=== PATIENT | male | born 1985 | race Caucasian/White ===

== ENCOUNTER 2016-05-28 11:36 | Emergency (ER) | payer SELFPAY ==
[2016-05-28] MEDS ORDERED: NAPROXEN 250 MG TABLET PO ONE (11:59)
--- NOTE | 2016-05-28 12:03 | ER Document Report ---
ED Medical Screen (RME) - General Chief Complaint: Back Pain Stated Complaint: LOW BACK PAIN,LEFT LEG PAIN Mode of Arrival: Ambulatory Information source: Patient Notes: 31-year-old male presents to the emergency department complaining of left lower back pain intermittently persistent over approximately the last week. Reports pain radiates down his left leg worse with movement and ambulation. Denies fever or trauma. I have greeted and performed a rapid initial assessment of this patient. A comprehensive ED assessment and evaluation of the patient, analysis of test results and completion of the medical decision making process will be conducted by additional ED providers. TRAVEL OUTSIDE OF THE [place] IN LAST 30 DAYS: No - Related Data Allergies/Adverse Reactions: No Known Allergies Allergy (Verified 05/28/16 11:55) Past Medical History - Social History Chew tobacco use (# tins/day): No Frequency of alcohol use: None Drug Abuse: None Renal/ Medical History: Denies: Hx Peritoneal Dialysis - Immunizations Hx Diphtheria, Pertussis, Tetanus Vaccination: Yes Physical Exam - Vital signs Vitals: Pulse Resp BP Pulse Ox 106 H 20 143/103 H 100 05/28/16 11:57 05/28/16 11:57 05/28/16 11:57 05/28/16 11:57 - General General appearance: Appears well, Alert In distress: None Course - Vital Signs Vital signs: Temp Pulse Resp BP Pulse Ox 106 H 20 143/103 H 100 05/28/16 11:57 05/28/16 11:57 05/28/16 11:57 05/28/16 11:57
[2016-05-28] MEDS ORDERED: OXYCODONE-ACETAMINOPHEN 5-325 MG TABLET PO ONE (13:02)
[2016-05-28 13:48] LABS: ABSOLUTE EOSINOPHILS # (AUTO) 0.1 10^3/uL (0.0-0.6); ABSOLUTE LYMPHOCYTES (AUTO) 2.5 10^3/uL (0.5-4.7); ABSOLUTE MONOCYTES (AUTO) 0.9 10^3/uL (0.1-1.4); ABSOLUTE NEUT (AUTO) 4.9 10^3/uL (1.7-8.2); BASOPHILS % (AUTO) 0.4 % (0-2); EOSINOPHILS % (AUTO) 1.5 % (0-6); HEMATOCRIT 44.6 % (37.9-51.0); HEMOGLOBIN 15.6 g/dL (13.5-17.0); HGB HCT DIFFERENCE 2.2; LYMPHOCYTES % (AUTO) 29.7 % (13-45); MEAN CORPUSCULAR VOLUME 86 fl (80-97); MONOCYTES % (AUTO) 10.2 % (3-13); RED CELL DISTRIBUTION WIDTH 12.8 % (11.5-14.0); SEGMENTED NEUTROPHILS % (AUTO) 58.2 % (42-78); WHITE BLOOD COUNT 8.4 10^3/uL (4.0-10.5)
[2016-05-28] MEDS ORDERED: PREDNISONE 20 MG TABLET PO ONE (13:56)
[2016-05-28] MEDS ORDERED: METHOCARBAMOL 500 MG TABLET PO ONE (13:56)
[2016-05-28 14:04] LABS: APPEARANCE,URINE SLIGHTLY-CLOUDY; BILIRUBIN,URINE NEGATIVE (NEGATIVE); GLUCOSE, URINE NEGATIVE (NEGATIVE); KETONES,URINE NEGATIVE (NEGATIVE); LEUKOCYTE ESTERASE,URINE NEGATIVE (NEGATIVE); NITRITE,URINE NEGATIVE (NEGATIVE); PROTEIN,URINE NEGATIVE (NEGATIVE); URINE SPECIFIC GRAVITY 1.024; UROBILINOGEN,URINE NEGATIVE mg/dL (<2.0)
[2016-05-28 14:07] LABS: ALANINE AMINOTRANSFERASE 83 U/L (21-72); ALBUMIN 4.7 g/dL (3.5-5.0); ALKALINE PHOSPHATASE 59 U/L (38-126); ANION GAP 12 (5-19); ASPARTATE AMINO TRANSFERASE 40 U/L (17-59); BILIRUBIN,TOTAL 0.9 mg/dL (0.2-1.3); BLOOD UREA NITROGEN 19 mg/dL (7-20); CALCIUM 10.1 mg/dL (8.4-10.2); CARBON DIOXIDE 27 mmol/L (22-30); CHLORIDE 102 mmol/L (98-107); CREATININE RESULT 1.13 mg/dL (0.52-1.25); GLUCOSE 93 mg/dL (75-110); POTASSIUM 4.4 mmol/L (3.6-5.0); SODIUM 141.3 mmol/L (137-145); TOTAL PROTEIN 7.3 g/dL (6.3-8.2)
--- NOTE | 2016-05-28 14:34 | ER Document Report ---
ED General - General Chief Complaint: Back Pain Stated Complaint: LOW BACK PAIN,LEFT LEG PAIN Mode of Arrival: Ambulatory Information source: Patient Notes: Patient presents to emergency department with complaints of left-sided low back pain that radiates down his left buttocks to his thigh and into his foot. He denies trauma. He denies urinary bowel incontinence or retention. He denies numbness or tingling. He reports symptoms started last and escalated since then. He denies other symptoms such as fever vomiting diarrhea. 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 Patient reports at times the pain goes up his back and into his neck. He denies weight loss. He denies use of IV drugs. He denies steroid injections. He also denies cancers. TRAVEL OUTSIDE OF THE [place] IN LAST 30 DAYS: No - HPI Onset: Last week Onset/Duration: Sudden, Persistent Quality of pain: Achy Severity: Severe Pain Level: 4 Associated symptoms: None Exacerbated by: Sitting Relieved by: Denies Similar symptoms previously: No Recently seen / treated by doctor: No - Related Data Allergies/Adverse Reactions: No Known Allergies Allergy (Verified 05/28/16 11:55) Past Medical History - General Information source: Patient - Social History Smoking Status: Never Smoker Chew tobacco use (# tins/day): No Frequency of alcohol use: None Drug Abuse: None Occupation: construction Lives with: Family Family History: Reviewed & Not Pertinent Patient has suicidal ideation: No Patient has homicidal ideation: No - Medical History Medical History: Negative Renal/ Medical History: Denies: Hx Peritoneal Dialysis Surgical Hx: Negative - Immunizations Hx Diphtheria, Pertussis, Tetanus Vaccination: Yes Review of Systems - Review of Systems Notes: Review HPI for review of systems., All other systems negative Physical Exam - Vital signs Vitals: Pulse Resp BP Pulse Ox 106 H 20 143/103 H 100 05/28/16 11:57 05/28/16 11:57 05/28/16 11:57 05/28/16 11:57 - Notes Notes: PHYSICAL EXAMINATION: GENERAL: Well-appearing and in no acute distress HEAD: Atraumatic, normocephalic. EYES: Pupils equal round , extraocular movements intact, sclera anicteric, conjunctiva are normal. ENT: nares patent, oropharynx clear without exudates. Moist mucous membranes. NECK: Normal range of motion, supple without lymphadenopathy LUNGS: CTAB and equal. No wheezes rales or rhonchi. HEART: Regular rate and rhythm without murmurs ABDOMEN: Soft, no tenderness. No guarding, no rebound BACK: C/O left side paraspinal tenderness, +straight leg test at 30 degrees on left side, no obvious deformity, distal movement and sensation strong pushes no weakness EXTREMITIES: Normal range of motion, no pitting edema. No cyanosis. NEUROLOGICAL: Cranial nerves grossly intact. Normal sensory/motor exams. PSYCH: Normal mood, normal affect. SKIN: Warm, Dry, normal turgor, no rashes or lesions noted Course - Re-evaluation Re-evalutation: 05/28/16 14:30 The patient presents with low back pain without signs of spinal cord compression , cauda equine syndrome, infection, aneurysm, or other serious etiology. The patient is neurologically intact. The patient has good distal movement and sensation, denies urinary or bowel incontinence/retention. Given the extremely low risk of these diagnosis, further testing and evaluation for these possibilities does not appear to be indicated at this time. The patient has been instructed to return if the symptoms worsen or change in anyway. The patient presents with low back pain without signs of spinal cord compression , cauda equine syndrome, infection, aneurysm, or other serious etiology. The patient is neurologically intact. The patient has good distal movement and sensation, denies urinary or bowel incontinence/retention. Given the extremely low risk of these diagnosis, further testing and evaluation for these possibilities does not appear to be indicated at this time. The patient has been instructed to return if the symptoms worsen or change in anyway. - Vital Signs Vital signs: Temp Pulse Resp BP Pulse Ox 98.0 F 80 16 150/80 H 100 05/28/16 14:47 05/28/16 14:47 05/28/16 14:47 05/28/16 14:47 05/28/16 14:47 - Laboratory Result Diagrams: 05/28/16 13:39 05/28/16 13:39 Laboratory results interpreted by me: 05/28/16 13:39 ALT 83 H - EKG Interpretation by [facility] EKG shows normal: Sinus rhythm Discharge - Discharge Clinical Impression: Elevated blood pressure reading Low back pain Qualifiers: Chronicity: acute Back pain laterality: left Sciatica presence: with sciatica Sciatica laterality: sciatica of left side Qualified Code(s): M54.42 - Lumbago with sciatica, left side Condition: Stable Disposition: HOME, SELF-CARE Instructions: Low Back Pain ([facility]), Oral Narcotic Medication ([facility]), Warm Packs ( [facility]), Ice Packs ([facility]), Muscle Relaxers ([facility]), Steroid Medication, Sciatica ([facility]) , Family Physicians / Practices Additional Instructions: *You have been evaluated for back pain, sciatica *Monitor your blood pressure. Your blood pressure was elevated today. This may be because you were anxious, in pain or because you need medication. It is important to follow up with your primary care provider for full evaluation. *Take medication as prescribed *Rest/Ice- warm packs as directed *Follow up with a primary care provider within one week for recheck *Return to ED for worsening condition, changes, needs, concerns Prescriptions: Cyclobenzaprine HCl [Flexeril 10 Mg Tablet] 10 mg PO TID #30 tablet Oxycodone HCl/Acetaminophen [Percocet 5-325 mg Tablet] 1 - 2 tab PO ASDIR PRN # 20 tablet PRN Reason: Prednisone [Deltasone 10 mg Tablet] 10 mg PO ASDIR PRN #15 tablet PRN Reason: Forms: Elevated Blood Pressure, Return to Work Referrals: BETSY ALAS MD [COMMUNITY BASED STAFF] - Follow up in 1 week
[2016-05-28 14:49] VITALS: BP 150/80
--- NOTE | 2016-05-28 22:07 | EKG REPORT ---
SEVERITY:- NORMAL ECG - SINUS RHYTHM : Confirmed by: Aspen Wasserman 28-May-2016 22:07:02
== END 2016-05-28 14:49 | disposition home or self-care (01) ==
LOC: ER 11:36
DX: M54.42 Lumbago with sciatica, left side (principal); R03.0 Elevated blood-pressure reading, without diagnosis of hypertension
CPT/HCPCS: 93005; 99283; 36415; 85025; 80053; 81001; 93010; J7512

== ENCOUNTER 2017-02-04 12:57 | Emergency (ER) | payer SELFPAY ==
--- NOTE | 2017-02-04 14:15 | ER Document Report ---
ED Extremity Problem, Lower - General Chief Complaint: Leg Injury Stated Complaint: LEFT LEG/ANKLE PAIN, SWELLING Mode of Arrival: Ambulatory Information source: Patient TRAVEL OUTSIDE OF THE [place] IN LAST 30 DAYS: No - HPI Patient complains to provider of: Injury Location: Ankle, Foot, Leg Occurred: Last week Where: Outdoors, Sports Onset/Duration: Sudden Quality of pain: Achy Severity: Moderate Context: Fell Recent injury: Yes Associated symptoms: Thayer a crack, Painful ambulation. denies: Chest pain, Chills, Dizzy, Fainting, Fever, Thayer a pop, Hurts to breath, Rapid heart rate, Seizure, Short of breath, Sweaty, Unable to bear weight, Weak Exacerbated by: Movement, Walking Relieved by: Rest Notes: Patient arrives with complaints of left leg pain. The patient states that he was playing soccer 13 days ago when he collided with another player injuring his left leg. He reports being seen at [facility] and having x-rays of his foot which she reports is negative. He continues to have left ankle and lower leg pain. He states that the leg has become bruised and swollen and his pain seems to be getting worse. He has been using crutches as needed as well as an Aircast. He denies any fever. He denies any current numbness, tingling, weakness. No chest pain or shortness of breath. He denies any other injuries or any other complaints at this time. - Related Data Allergies/Adverse Reactions: No Known Allergies Allergy (Verified 02/04/17 13:04) Past Medical History - Social History Smoking Status: Never Smoker Chew tobacco use (# tins/day): No Frequency of alcohol use: None Drug Abuse: None Family History: Reviewed & Not Pertinent Patient has suicidal ideation: No Renal/ Medical History: Denies: Hx Peritoneal Dialysis Surgical Hx: Negative - Immunizations Hx Diphtheria, Pertussis, Tetanus Vaccination: Yes Review of Systems - Review of Systems -: Yes All other systems reviewed and negative Physical Exam - Vital signs Vitals: Temp Pulse Resp BP Pulse Ox 97.7 F 80 20 174/96 H 98 02/04/17 13:07 02/04/17 13:07 02/04/17 13:07 02/04/17 13:07 02/04/17 13:07 - Notes Notes: GENERAL: alert, cooperative, nontoxic, no distress. HEAD: normocephalic, atraumatic EYES: conjunctiva pink without discharge, no external redness or swelling. EARS: no external swelling, no external redness NOSE: atraumatic, no external swelling MOUTH/THROAT: mucous membranes moist and pink NECK: soft, supple, full range of motion, no meningismus. CHEST: no distress, lungs clear and equal throughout. No wheezing, rales, rhonchi. CARDIAC: regular rate and rhythm, no murmur, normal capillary refill, normal pulses. BACK: full range of motion, no CVA tenderness. EXTREMITIES: Swelling and bruising noted to the left leg from the mid garcia down to the toes. Compartments are soft. Full range of motion of the ankle and the foot. Achilles is intact with a normal Rayo's test. Patient has tenderness to palpation of the mid garcia as well as the medial and lateral malleolus. Patient also has tenderness to the dorsum of the foot. Normal pulse and sensation distally. Normal knee exam. NEURO: alert and oriented 3, no focal deficits, full range of motion of all extremities. PYSCH: appropriate mood, affect. Patient is cooperative. SKIN: pink, warm, dry, no rash. Course - Re-evaluation Re-evalutation: 02/04/17 15:56 The patient is nontoxic appearing with stable vitals. The patient injured his left lower leg approximately 13 days ago while playing soccer. X-rays today show no acute bony abnormality. The patient continues to have significant swelling and bruising. His compartments are soft. He has a normal neurovascular exam. He was placed in a posterior splint. He will be [facility]. We will discharge the patient home with a prescription for [place]. He may require further imaging such as an MRI to further evaluate the soft tissues of his ankle. The patient is noted to have elevated blood pressure during today's emergency department visit. The patient was informed of this finding. The patient was instructed that this may be related to pre-hypertension and requires further evaluation with a primary care provider. The patient has no hypertensive symptoms at this time. - Vital Signs Vital signs: Temp Pulse Resp BP Pulse Ox 97.7 F 80 20 174/96 H 98 02/04/17 13:07 02/04/17 13:07 02/04/17 13:07 02/04/17 13:07 02/04/17 13:07 - Diagnostic Test Radiology reviewed: Image reviewed, Reports reviewed - No acute bony abnormality Procedures - Immobilization LEFT Lower leg Pre-Proc Neuro Vasc Exam: Normal Immobilizer type: Short Leg Posterior Performed by: PCT Post-Proc Neuro Vasc Exam: Normal Alignment checked and good: Yes Discharge - Discharge Clinical Impression: Left ankle sprain Qualifiers: Encounter type: subsequent encounter Involved ligament of ankle: unspecified ligament Qualified Code(s): S93.402D - Sprain of unspecified ligament of left ankle, subsequent encounter Disposition: HOME, SELF-CARE Instructions: Oral Narcotic Medication ([facility]), Splint Precautions ([facility]), Sprained Ankle ([facility]) Additional Instructions: Wear splint and use crutches until follow-up. Follow-up with [facility] or primary care at the next available appointment, you may require further imaging of this ankle. Rest, ice, elevate the extremity. Your blood pressure was elevated during today's visit. Have this rechecked with your doctor. The medication you were prescribed today may cause drowsiness. Do not drive or operate heavy machinery while taking this medication. Prescriptions: Hydrocodone/Acetaminophen [[place] 5-325 mg Tablet] 1 tab PO Q4 PRN #12 tablet PRN Reason: Naproxen 500 mg PO BID #20 tablet Forms: Elevated Blood Pressure Referrals: YULISSA ENRIQUEZ MD [ACTIVE STAFF] - Follow up as needed [facility] [Provider Group] - Follow up as needed
--- NOTE | 2017-02-04 14:48 | RADIOLOGY REPORT (SQ) ---
EXAM DESCRIPTION: FOOT LEFT COMPLETE COMPLETED DATE/TIME: 02/04/2017 2:37 pm REASON FOR STUDY: injury, pain COMPARISON: None. NUMBER OF VIEWS: Three views. TECHNIQUE: AP, lateral and oblique radiographic images acquired of the left foot. LIMITATIONS: None. FINDINGS: MINERALIZATION: Normal. BONES: No acute fracture or dislocation. No worrisome bone lesions. JOINTS: No effusions. SOFT TISSUES: No soft tissue swelling. No foreign body. OTHER: No other significant finding. IMPRESSION: NEGATIVE STUDY OF THE LEFT FOOT. NO RADIOGRAPHIC EVIDENCE OF ACUTE INJURY. TECHNICAL DOCUMENTATION: JOB ID: [id number] [employer]- All Rights Reserved
--- NOTE | 2017-02-04 14:49 | RADIOLOGY REPORT (SQ) ---
EXAM DESCRIPTION: TIBIA FIBULA LEFT COMPLETED DATE/TIME: 02/04/2017 2:37 pm REASON FOR STUDY: injury, pain COMPARISON: None. NUMBER OF VIEWS: Two views. TECHNIQUE: Two radiographic images acquired of the left tibia and fibula to include the knee and ank le in at least one projection. LIMITATIONS: None. FINDINGS: MINERALIZATION: Normal. BONES: No acute fracture or dislocation. No worrisome bone lesions. SOFT TISSUES: There is soft tissue swelling at the ankle. OTHER: No other significant finding. IMPRESSION: Soft tissue swelling the ankle. There is no fracture. TECHNICAL DOCUMENTATION: JOB ID: [id number] [employer]- All Rights Reserved
[2017-02-04 16:31] VITALS: BP 144/93
== END 2017-02-04 16:31 | disposition home or self-care (01) ==
LOC: ER 12:57
PROC: 2W3RX1Z Immobilization of Left Lower Leg using Splint (ICD-10-PCS; principal; 2017-02-04)
DX: S93.402A Sprain of unspecified ligament of left ankle, initial encounter (principal); W51.XXXA Accidental striking against or bumped into by another person, initial encounter; Y93.66 Activity, soccer; M25.572 Pain in left ankle and joints of left foot; M79.662 Pain in left lower leg; R03.0 Elevated blood-pressure reading, without diagnosis of hypertension
CPT/HCPCS: 99283

== ENCOUNTER 2017-04-15 17:23 | Emergency (ER) | payer SELFPAY ==
[2017-04-15] MEDS ORDERED: ONDANSETRON HCL INJ/PF 4 MG/2 ML SDV IV ONE (18:08)
[2017-04-15] MEDS ORDERED: MORPHINE SULFATE 10 MG/ML INJ IV ONE (18:08)
[2017-04-15] MEDS ORDERED: NORMAL SALINE 1000 ML 1,000 ML IV ONE (18:10)
--- NOTE | 2017-04-15 18:11 | ER Document Report ---
ED Medical Screen (RME) - General Chief Complaint: Groin Pain Stated Complaint: LOWER ABDOMINAL PAIN Time Seen by Provider: 04/15/17 18:08 Notes: Patient has severe right inguinal pain. He has an obvious hernia on exam that I am unable to reduce in triage. TRAVEL OUTSIDE OF THE [place] IN LAST 30 DAYS: No - Related Data Allergies/Adverse Reactions: No Known Allergies Allergy (Verified 04/15/17 17:25) Home Medications: Current Home Medications No Home Medications 04/15/17 [History] Past Medical History - Social History Frequency of alcohol use: None Drug Abuse: None Renal/ Medical History: Denies: Hx Peritoneal Dialysis - Immunizations Hx Diphtheria, Pertussis, Tetanus Vaccination: Yes History of Influenza Vaccine for 01/2017 - 06/2017 Season: Unknown Physical Exam - Vital signs Vitals: Temp Pulse Resp BP Pulse Ox 98.5 F 85 18 151/107 H 99 04/15/17 17:32 04/15/17 17:32 04/15/17 17:32 04/15/17 17:32 04/15/17 17:32 Course - Vital Signs Vital signs: Temp Pulse Resp BP Pulse Ox 98.5 F 85 18 151/107 H 99 04/15/17 17:32 04/15/17 17:32 04/15/17 17:32 04/15/17 17:32 04/15/17 17:32
[2017-04-15 18:49] LABS: ABSOLUTE BASOPHILS # (AUTO) 0.1 10^3/uL (0.0-0.2); ABSOLUTE EOSINOPHILS # (AUTO) 0.1 10^3/uL (0.0-0.6); ABSOLUTE LYMPHOCYTES (AUTO) 2.6 10^3/uL (0.5-4.7); ABSOLUTE MONOCYTES (AUTO) 0.9 10^3/uL (0.1-1.4); ABSOLUTE NEUT (AUTO) 8.5 10^3/uL (1.7-8.2); BASOPHILS % (AUTO) 0.6 % (0-2); EOSINOPHILS % (AUTO) 0.8 % (0-6); HEMATOCRIT 46.5 % (37.9-51.0); HEMOGLOBIN 16.4 g/dL (13.5-17.0); HGB HCT DIFFERENCE 2.7; LYMPHOCYTES % (AUTO) 21.5 % (13-45); MEAN CORPUSCULAR HEMOGLOBIN 30.8 pg (27.0-33.4); MEAN CORPUSCULAR HGB CONC 35.2 g/dL (32.0-36.0); MEAN CORPUSCULAR VOLUME 87 fl (80-97); MONOCYTES % (AUTO) 7.3 % (3-13); RED BLOOD COUNT 5.32 10^6/uL (4.35-5.55); RED CELL DISTRIBUTION WIDTH 13.1 % (11.5-14.0); SEGMENTED NEUTROPHILS % (AUTO) 69.8 % (42-78); WHITE BLOOD COUNT 12.1 10^3/uL (4.0-10.5)
[2017-04-15 18:50] LABS: APPEARANCE,URINE CLEAR; BILIRUBIN,URINE NEGATIVE (NEGATIVE); GLUCOSE, URINE NEGATIVE (NEGATIVE); KETONES,URINE NEGATIVE (NEGATIVE); LEUKOCYTE ESTERASE,URINE NEGATIVE (NEGATIVE); NITRITE,URINE NEGATIVE (NEGATIVE); PROTEIN,URINE NEGATIVE (NEGATIVE); URINE SPECIFIC GRAVITY 1.029
[2017-04-15] MEDS ORDERED: PROPOFOL INJ 200 MG/20 ML VIAL IV ONE (18:52)
--- NOTE | 2017-04-15 18:54 | ER Document Report ---
ED General - General Chief Complaint: Groin Pain Stated Complaint: LOWER ABDOMINAL PAIN Time Seen by Provider: 04/15/17 18:08 Notes: 31-year-old male with a history of hernia on the right side for 2 years presents with burning severe constant pain on the right groin for about 4-1/2 hours since he was lifting a heavy object. Normally the pain goes away and he can reduce the hernia however it stayed out this entire time. He has no nausea vomiting a remote abdominal pain. He did eat lunch right before this happened. He had some cheese it is about 2 hours ago. No fever or chills. Never had surgery before. No numbness or tingling in the groin. TRAVEL OUTSIDE OF THE [place] IN LAST 30 DAYS: No - Related Data Allergies/Adverse Reactions: No Known Allergies Allergy (Verified 04/15/17 17:25) Home Medications: Current Home Medications No Home Medications 04/15/17 [History] Past Medical History - General Information source: Patient - Social History Smoking Status: Never Smoker Frequency of alcohol use: None Drug Abuse: None Family History: Reviewed & Not Pertinent Patient has suicidal ideation: No Patient has homicidal ideation: No Renal/ Medical History: Denies: Hx Peritoneal Dialysis - Immunizations Hx Diphtheria, Pertussis, Tetanus Vaccination: Yes Review of Systems - Review of Systems Notes: REVIEW OF SYSTEMS GEN: Denies fever, chills, weight loss ENT: Denies sore throat, nasal discharge, ear pain EYES: Denies blurry vision, eye pain, discharge CV: Denies chest pain, palpitations, edema RESP: Denies cough, shortness of breath, wheezing GI: Right groin pain MSK: Denies joint pain/swelling, edema, SKIN: Denies rash, skin lesions LYMPH: Denies swollen glands/lymph nodes NEURO: Denies headache, focal weakness or numbness, dizziness PSYCH: Denies depression, suicidal or homicidal ideation PHYSICAL EXAMINATION General: No acute distress, well-nourished Head: Atraumatic, normocephalic ENT: Mouth normal, oropharynx moist, no exudates or tonsillar enlargement Eyes: Conjunctiva normal, pupils equal, lids normal Neck: No JVD, supple, no guarding CVS: Normal rate, regular rhythm, no murmurs Resp: No resp distress, equal and normal breath sounds bilaterally GI: Nondistended, soft, no tenderness to palpation, no rebound or guarding. Genitourinary: Nonreducible firm minimally tender right inguinal hernia. Normal cremaster reflex, normal penis and scrotum. No skin changes over the hernia. Ext: No deformities, no edema, normal range of motion in upper and lower ext Back: No CVA or midline TTP Skin: No rash, warm Lymphatic: No lymphadeopathy noted Neuro: Awake, alert. Face symmetric. GCS 15. Physical Exam - Vital signs Vitals: Temp Pulse Resp BP Pulse Ox 98.5 F 85 18 151/107 H 99 04/15/17 17:32 04/15/17 17:32 04/15/17 17:32 04/15/17 17:32 04/15/17 17:32 Course - Re-evaluation Re-evalutation: 04/15/17 18:54 31-year-old male presents with incarcerated right inguinal hernia 4.5 hours. No belly pain, minimal tenderness, no skin changes. Unlikely strangulate his bowel. Attempted minimal reduction at the bedside, patient is too tender. Placed in Trendelenburg, I supplied a going, will use propofol, consent sedate an attempt to reduce hernia. 04/15/17 19:44 Patient consented for procedural sedation hernia reduction. When I was discussing the risks and benefits he had already been in Trendelenburg with eyes and is going for about 20 minutes. He experienced some increased pain and then felt relief. At 740 I examined him and his hernia is spontaneously reduced. Will abort sedation, provide instructions for outpatient hernia management, and refer him to surgery. Will observe him for an hour just to make sure he does not develop any peritonitis or vomiting. I have discussed with the patient there likely diagnosis, aftercare plan, follow -up plans and my usual and customary return precautions. They verbalized understanding of this. - Vital Signs Vital signs: Temp Pulse Resp BP Pulse Ox 98.5 F 73 16 151/96 H 100 04/15/17 17:32 04/15/17 19:24 04/15/17 19:24 04/15/17 19:24 04/15/17 19:24 - Laboratory Result Diagrams: 04/15/17 18:36 04/15/17 18:36 Laboratory results interpreted by me: 04/15/17 04/15/17 04/15/17 18:18 18:36 18:36 WBC 12.1 H Absolute Neutrophils 8.5 H Calcium 10.3 H Urine Urobilinogen 2.0 H Discharge - Discharge Clinical Impression: Incarcerated right inguinal hernia Disposition: HOME, SELF-CARE Instructions: Hernia ([facility]) Additional Instructions: Please purchase a hernia belt. Please do not lift anything heavier than a gallon of milk. I's drink plenty of water, keep her stools soft and avoid straining to have bowel movements. Referrals: DOUGLAS BRICE MD [MOTORCYCLE REPAIRER] - Follow up in 1 week
[2017-04-15 19:03] LABS: ALANINE AMINOTRANSFERASE 62 U/L (21-72); ALBUMIN 4.9 g/dL (3.5-5.0); ALKALINE PHOSPHATASE 69 U/L (38-126); ANION GAP 16 (5-19); ASPARTATE AMINO TRANSFERASE 29 U/L (17-59); BILIRUBIN,DIRECT 0.3 mg/dL (0.0-0.4); BILIRUBIN,TOTAL 0.7 mg/dL (0.2-1.3); BLOOD UREA NITROGEN 17 mg/dL (7-20); CALCIUM 10.3 mg/dL (8.4-10.2); CARBON DIOXIDE 24 mmol/L (22-30); CHLORIDE 102 mmol/L (98-107); CREATININE RESULT 1.24 mg/dL (0.52-1.25); GLUCOSE 100 mg/dL (75-110); POTASSIUM 4.2 mmol/L (3.6-5.0); SODIUM 142.2 mmol/L (137-145); TOTAL PROTEIN 7.5 g/dL (6.3-8.2)
[2017-04-15 20:39] VITALS: BP 149/90
== END 2017-04-15 20:20 | disposition home or self-care (01) ==
LOC: ER 17:23
DX: K40.90 Unilateral inguinal hernia, without obstruction or gangrene, not specified as recurrent (principal); R10.30 Lower abdominal pain, unspecified
CPT/HCPCS: 99283; 96361; 96374; 96375; 36415; 85025; 80053; 81001; J2270; J2405; J7030

== ENCOUNTER 2017-07-19 11:26 | Emergency (ER) | payer SELFPAY ==
--- NOTE | 2017-07-19 12:23 | ER Document Report ---
ED Medical Screen (RME) - General Chief Complaint: Abdominal Pain Stated Complaint: ABDOMINAL PAIN Time Seen by Provider: 07/19/17 12:18 Mode of Arrival: Ambulatory Information source: Patient Notes: Patient states he has a history of a right inguinal hernia. He states he has had pain intermittently for the weekend. He states he is not having severe burning pain in the right inguinal area. He states that the hernia masses been much larger previously. He states today it is not very big but it is extremely painful. TRAVEL OUTSIDE OF THE [place] IN LAST 30 DAYS: No - Related Data Allergies/Adverse Reactions: No Known Allergies Allergy (Verified 04/15/17 17:25) Past Medical History - Social History Frequency of alcohol use: None Renal/ Medical History: Denies: Hx Peritoneal Dialysis - Immunizations Hx Diphtheria, Pertussis, Tetanus Vaccination: Yes History of Influenza Vaccine for 01/2017 - 06/2017 Season: Unknown Physical Exam - Vital signs Vitals: Temp Pulse Resp BP Pulse Ox 98.1 F 69 18 146/84 H 100 07/19/17 11:55 07/19/17 11:55 07/19/17 11:55 07/19/17 11:55 07/19/17 11:55 Course - Vital Signs Vital signs: Temp Pulse Resp BP Pulse Ox 98.1 F 69 18 146/84 H 100 07/19/17 11:55 07/19/17 11:55 07/19/17 11:55 07/19/17 11:55 07/19/17 11:55
[2017-07-19 13:07] LABS: ABSOLUTE EOSINOPHILS # (AUTO) 0.1 10^3/uL (0.0-0.6); ABSOLUTE LYMPHOCYTES (AUTO) 2.1 10^3/uL (0.5-4.7); ABSOLUTE MONOCYTES (AUTO) 0.5 10^3/uL (0.1-1.4); ABSOLUTE NEUT (AUTO) 6.9 10^3/uL (1.7-8.2); BASOPHILS % (AUTO) 0.3 % (0-2); EOSINOPHILS % (AUTO) 1.1 % (0-6); HEMATOCRIT 47.7 % (37.9-51.0); HEMOGLOBIN 16.5 g/dL (13.5-17.0); MEAN CORPUSCULAR HEMOGLOBIN 30.4 pg (27.0-33.4); MEAN CORPUSCULAR HGB CONC 34.7 g/dL (32.0-36.0); MEAN CORPUSCULAR VOLUME 88 fl (80-97); MONOCYTES % (AUTO) 5.3 % (3-13); PLATELET COUNT 330 10^3/uL (150-450); RED BLOOD COUNT 5.45 10^6/uL (4.35-5.55); SEGMENTED NEUTROPHILS % (AUTO) 71.3 % (42-78); TOTAL CELLS COUNTED % (AUTO) 100 %; WHITE BLOOD COUNT 9.7 10^3/uL (4.0-10.5)
[2017-07-19 13:17] LABS: ALANINE AMINOTRANSFERASE 65 U/L (21-72); ALBUMIN 4.7 g/dL (3.5-5.0); ALKALINE PHOSPHATASE 58 U/L (38-126); ANION GAP 11 (5-19); APPEARANCE,URINE CLEAR; ASPARTATE AMINO TRANSFERASE 32 U/L (17-59); BILIRUBIN,DIRECT 0.4 mg/dL (0.0-0.4); BILIRUBIN,TOTAL 0.6 mg/dL (0.2-1.3); BILIRUBIN,URINE NEGATIVE (NEGATIVE); BLOOD UREA NITROGEN 15 mg/dL (7-20); CALCIUM 10.1 mg/dL (8.4-10.2); CARBON DIOXIDE 28 mmol/L (22-30); CHLORIDE 102 mmol/L (98-107); COLOR,URINE YELLOW; GLUCOSE 115 mg/dL (75-110); GLUCOSE, URINE NEGATIVE (NEGATIVE); KETONES,URINE NEGATIVE (NEGATIVE); LEUKOCYTE ESTERASE,URINE NEGATIVE (NEGATIVE); NITRITE,URINE NEGATIVE (NEGATIVE); POTASSIUM 4.6 mmol/L (3.6-5.0); PROTEIN,URINE NEGATIVE (NEGATIVE); SODIUM 140.9 mmol/L (137-145); TOTAL PROTEIN 7.9 g/dL (6.3-8.2); URINE SPECIFIC GRAVITY 1.016; UROBILINOGEN,URINE NEGATIVE mg/dL (<2.0)
--- NOTE | 2017-07-19 14:27 | RADIOLOGY REPORT (SQ) ---
EXAM DESCRIPTION: ACUTE ABDOMEN SERIES COMPLETED DATE/TIME: 07/19/2017 2:18 pm REASON FOR STUDY: Abdominal pain COMPARISON: None. NUMBER OF VIEWS: Three views. TECHNIQUE: Frontal chest, supine abdomen and upright/decubitus abdomen radiographic images acquired. LIMITATIONS: None. FINDINGS: CHEST: Lungs clear of infiltrates. FREE AIR: None. No abnormal gas collections. BOWEL GAS PATTERN: Nonobstructive pattern. No dilated loops or air fluid levels. CALCIFICATIONS: No suspicious calcifications. HARDWARE: None in the abdomen. SOFT TISSUES: No gross mass or suggestion of organomegaly. BONES: No acute fracture. No worrisome bone lesions. OTHER: No other significant finding. IMPRESSION: NO RADIOGRAPHIC EVIDENCE FOR ACUTE ABDOMINAL DISEASE. TECHNICAL DOCUMENTATION: JOB ID: [id number] [employer]- All Rights Reserved Reading location - IP/workstation name: [email or web address]-[email or web address]
--- NOTE | 2017-07-19 15:10 | ER Document Report ---
ED GI/ - General Chief Complaint: Abdominal Pain Stated Complaint: ABDOMINAL PAIN Time Seen by Provider: 07/19/17 12:18 Mode of Arrival: Ambulatory Notes: 32 years old maleHPI-presents today with right inguinal hernia, this morning it became larger and then subsequently reduced by itself. But having persistent pain in that region. With a history of hydrocele. No fever chills or other constitutional symptoms right inguinal hernia noted which is reducible REVIEW OF SYSTEMS: CONSTITUTIONAL : Denies fever, chills, or sweats. Denies recent illness. EENT: Denies eye, ear, throat, or mouth pain or symptoms. Denies nasal or sinus congestion or discharge. Denies throat, tongue, or mouth swelling or difficulty swallowing. CARDIOVASCULAR: Denies chest pain. Denies palpitations or racing or irregular heart beat. Denies ankle edema. RESPIRATORY: Denies cough, cold, or chest congestion. Denies shortness of breath, difficulty breathing, or wheezing. GASTROINTESTINAL: Denies abdominal pain or distention. Denies nausea, vomiting , or diarrhea. Denies blood in vomitus, stools, or per rectum. Denies black, tarry stools. Denies constipation. GENITOURINARY: Denies difficulty urinating, painful urination, burning, frequency, blood in urine, or discharge. MUSCULOSKELETAL: Denies back or neck pain or stiffness. Denies joint pain or swelling. SKIN: Denies rash, lesions or sores. HEMATOLOGIC : Denies easy bruising or bleeding. LYMPHATIC: Denies swollen, enlarged glands. NEUROLOGICAL: Denies confusion or altered mental status. Denies passing out or loss of consciousness. Denies dizziness or lightheadedness. Denies headache. Denies weakness or paralysis or loss of use of either side. Denies problems with gait or speech. Denies sensory loss, numbness, or tingling. Denies seizures. PSYCHIATRIC: Denies anxiety or stress. Denies depression, suicidal ideation, or homicidal ideation. ALL OTHER SYSTEMS REVIEWED AND NEGATIVE. Dictation was performed using [employer] recognition software PHYSICAL EXAMINATION: GENERAL: Well-appearing, well-nourished and in no acute distress. HEAD: Atraumatic, normocephalic. EYES: Pupils equal round and reactive to light, extraocular movements intact, sclera anicteric, conjunctiva are normal. ENT: Nares patent, oropharynx clear without exudates. Moist mucous membranes. NECK: Normal range of motion, supple without lymphadenopathy LUNGS: Breath sounds clear to auscultation bilaterally and equal. No wheezes rales or rhonchi. HEART: Regular rate and rhythm without murmurs ABDOMEN: Soft, nontender, nondistended abdomen. No guarding, no rebound. No masses appreciated. Right inguinal hernia noted which is reducible, tender. Genital exam: Right scrotal enlargement due to hydrocele. Nontender Musculoskeletal: Normal range of motion, no pitting or edema. No cyanosis. NEUROLOGICAL: Cranial nerves grossly intact. Normal speech, normal gait. Normal sensory, motor exams PSYCH: Normal mood, normal affect. SKIN: Warm, Dry, normal turgor, no rashes or lesions noted. TRAVEL OUTSIDE OF THE [place] IN LAST 30 DAYS: No - HPI Patient complains to provider of: Groin pain. No: Abdominal pain, Diarrhea, Dysuria, Feeding tube problem, Flank pain, Hoffmann catheter problem, Hematuria, Testicular pain, Urinary retention, Vomiting, Other Timing/Duration: Gradual. denies: Sudden, Constant, Intermittent, Persistent, Waxing and waning, Better, Worse, Gone Quality of pain: Achy. denies: No pain, Burning, Cramping, Dull, Fullness, Pressure, Sharp, Stabbing, Throbbing, Other Severity at maximum: Moderate Severity in ED: Moderate Pain Level: 3 - Related Data Allergies/Adverse Reactions: No Known Allergies Allergy (Verified 04/15/17 17:25) Past Medical History - General Information source: Patient - Social History Smoking Status: Never Smoker Cigarette use (# per day): No Chew tobacco use (# tins/day): No Frequency of alcohol use: None Family History: Reviewed & Not Pertinent Patient has suicidal ideation: No Patient has homicidal ideation: No - Past Medical History Cardiac Medical History: Reports: Hx Hypertension Renal/ Medical History: Denies: Hx Peritoneal Dialysis - Immunizations Hx Diphtheria, Pertussis, Tetanus Vaccination: Yes Review of Systems - Review of Systems Notes: As per history of complain Physical Exam - Vital signs Vitals: Temp Pulse Resp BP Pulse Ox 98.1 F 69 18 146/84 H 100 07/19/17 11:55 07/19/17 11:55 07/19/17 11:55 07/19/17 11:55 07/19/17 11:55 Course - Re-evaluation Re-evalutation: 07/19/17 15:09 Patient was evaluated by surgeon conductor and engineer, gave outpatient follow-up for outpatient surgery. - Vital Signs Vital signs: Temp Pulse Resp BP Pulse Ox 98.1 F 69 18 146/84 H 100 07/19/17 11:55 07/19/17 11:55 07/19/17 13:31 07/19/17 11:55 07/19/17 11:55 - Laboratory Result Diagrams: 07/19/17 12:34 07/19/17 12:34 Laboratory results interpreted by me: 07/19/17 12:34 Glucose 115 H - Diagnostic Test Radiology reviewed: Reports reviewed - Abdominal series unremarkable Discharge - Discharge Clinical Impression: Inguinal hernia of right side without obstruction or gangrene Condition: Fair Disposition: HOME, SELF-CARE Instructions: Bowel Obstruction ([facility])
[2017-07-19 15:51] VITALS: BP 140/80
--- NOTE | 2017-07-19 19:36 | PDOC CONSULTATION ---
Consultation Consult reason:: Right inguinal hernia, painful History of Present Illness History of Present Illness: JOE GARCIA is a 32 year old male Is seen in the emergency department complaining of increased pain, nausea and one episode of vomiting related to his right inguinal hernia. This is a chronic hernia which he has had for several years and was seen in the emergency department as well as outpatient clinics for this problem. He was to have the hernia fixed in the past but had no insurance and ran out of money. He has had increased sensation of shifting in his intestines from the left side to the right. He denies dysuria. He denies constipation. Works as a construction supervisor. Patient has a known hydrocele on the right side Past Medical History Cardiac Medical History: Reports: Hypertension Social History Smoking Status: Never Smoker Frequency of Alcohol Use: Rare Hx Recreational Drug Use: No Hx Prescription Drug Abuse: No Family History Family History: Reviewed & Not Pertinent Parental Family History Reviewed: Yes Children Family History Reviewed: Yes Sibling(s) Family History Reviewed.: Yes Medication/Allergy Home Medications: No Home Medications 04/15/17 Allergies/Adverse Reactions: No Known Allergies Allergy (Verified 04/15/17 17:25) Review of Systems Constitutional: PRESENT: as per HPI Eyes: ABSENT: visual disturbances Ears: ABSENT: hearing changes Cardiovascular: ABSENT: chest pain, dyspnea on exertion, edema, orthropnea, palpitations Respiratory: ABSENT: cough, hemoptysis Gastrointestinal: PRESENT: as per HPI, other - Denies trauma, constipation, previous abdominal problems Physical Exam Vital Signs: Temp Pulse Resp BP Pulse Ox 98.3 F 68 16 140/80 H 100 07/19/17 15:50 07/19/17 15:50 07/19/17 15:50 07/19/17 15:50 07/19/17 15:50 Intake & Output 07/18/17 07/19/17 07/20/17 06:59 06:59 06:59 Weight 101.9 kg General appearance: PRESENT: no acute distress Head exam: PRESENT: normocephalic Eye exam: PRESENT: EOMI Ear exam: PRESENT: normal external ear exam Neck exam: PRESENT: full ROM Respiratory exam: PRESENT: clear to auscultation elizabeth Cardiovascular exam: PRESENT: RRR Pulses: PRESENT: normal carotid pulses, normal radial pulses Rectal exam: PRESENT: deferred Gentrourinary exam: PRESENT: other - Testicles descended bilaterally; there is a moderately large hydrocele on the right side; there is a right inguinal hernia defect but no prolapsed tissue currently. No peritoneal signs no rigidity Psychiatric exam: PRESENT: appropriate affect Skin exam: PRESENT: dry Results Laboratory Results: 07/19/17 12:34 07/19/17 12:34 07/19/17 07/19/17 07/19/17 12:34 12:34 12:34 WBC 9.7 RBC 5.45 Hgb 16.5 Hct 47.7 MCV 88 MCH 30.4 MCHC 34.7 RDW 13.0 Plt Count 330 Seg Neutrophils % 71.3 Lymphocytes % 22.0 Monocytes % 5.3 Eosinophils % 1.1 Basophils % 0.3 Absolute Neutrophils 6.9 Absolute Lymphocytes 2.1 Absolute Monocytes 0.5 Absolute Eosinophils 0.1 Absolute Basophils 0.0 Sodium 140.9 Potassium 4.6 Chloride 102 Carbon Dioxide 28 Anion Gap 11 BUN 15 Creatinine 1.08 Est GFR ( Amer) > 60 Est GFR (Non-Af Amer) > 60 Glucose 115 H Calcium 10.1 Total Bilirubin 0.6 AST 32 ALT 65 Alkaline Phosphatase 58 Total Protein 7.9 Albumin 4.7 Urine Color YELLOW Urine Appearance CLEAR Urine pH 5.0 Ur Specific Drummond 1.016 Urine Protein NEGATIVE Urine Glucose (UA) NEGATIVE Urine Ketones NEGATIVE Urine Blood NEGATIVE Urine Nitrite NEGATIVE Ur Leukocyte Esterase NEGATIVE Urine WBC (Auto) 0 Urine RBC (Auto) 0 Impressions: Acute Abdomen Series 07/19/17 14:06 IMPRESSION: NO RADIOGRAPHIC EVIDENCE FOR ACUTE ABDOMINAL DISEASE. Assessment & Plan - Diagnosis (1) Inguinal hernia of right side without obstruction or gangrene Plan: Patient is right inguinal hernia, recurrent, prolapsing but currently nonobstructed nonincarcerated. Symptomatic and needs repair. Patient has associated hydrocele. Recommendations 1. No indication for acute intervention now 2. I give patient copy of my card and told contact our office and we will work with him regarding interval right inguinal herniorrhaphy with mesh using an open approach 3. In the interim I told him use a stool softener to avoid constipation, consider using a truss and avoid heavy lifting.
== END 2017-07-19 15:50 | disposition home or self-care (01) ==
LOC: ER 11:26
DX: K40.90 Unilateral inguinal hernia, without obstruction or gangrene, not specified as recurrent (principal); R10.9 Unspecified abdominal pain; I10 Essential (primary) hypertension
CPT/HCPCS: 36415; 74022; 80053; 81001; 85025; 99284

== ENCOUNTER 2017-08-30 21:30 | Emergency (ER) | payer SELFPAY ==
[2017-08-30] MEDS ORDERED: DEXAMETHASONE SOD PHOS INJ 10 MG/1 ML VIAL IM ONE (22:43)
[2017-08-30] MEDS ORDERED: DIAZEPAM 5 MG TABLET PO ONE (22:43)
[2017-08-30] MEDS ORDERED: KETOROLAC TROMETHAMINE INJ/PF 30 MG/1 ML SDV IM ONE (22:43)
--- NOTE | 2017-08-30 22:49 | ER Document Report ---
HPI - HPI Pain Level: 4 Notes: Patient is a 32-year-old male with presents to the ED complaining of left mid and lower back pain and an occasional burning sensation that radiates from his left buttock down to his left knee. Patient states that he has had this once before 2 years ago and needed some muscle relaxers and medicines for his acute flareup. Patient states that he does not recall any injury recently that would have causes pain, but does work in a laborers job. Patient states that he is still ambulatory, but his back keeps going to spasm on him. He denies any drug allergies. Denies any smoking or IV drug use. Denies any former opioid abuse. Denies any surgeries or procedures to his lower back. Denies any previous history of spinal abscess. Patient states that aside from the back pain he feels well and is eating and drinking without difficulties. He is urinating normally and having normal bowel movements. Denies any headache, fever, neck pain, URI, sore throat, chest pain, palpitations, syncope, cough, shortness of breath, wheeze, dyspnea, abdominal pain, nausea/vomiting/diarrhea, urinary retention, dysuria, hematuria, loss of control of bowel or bladder, numbness/ tingling, saddle anesthesia, muscle paralysis/weakness, or rash. - ROS Systems Reviewed and Negative: Yes All other systems reviewed and negative Past Medical History - Social History Smoking Status: Never Smoker Family History: Reviewed & Not Pertinent - Past Medical History Cardiac Medical History: Reports: Hx Hypertension Renal/ Medical History: Denies: Hx Peritoneal Dialysis - Immunizations Hx Diphtheria, Pertussis, Tetanus Vaccination: Yes Vertical Provider Document - CONSTITUTIONAL Agree With Documented VS: Yes Notes: PHYSICAL EXAMINATION: GENERAL: Well-appearing, well-nourished and in no acute distress. LUNGS: Breath sounds clear to auscultation bilaterally and equal. No wheezes rales or rhonchi. HEART: Regular rate and rhythm without murmurs, rubs, gallops. ABDOMEN: Soft, nontender, nondistended abdomen. No guarding, no rebound. No masses appreciated. Normal bowel sounds present. No CVA tenderness bilaterally. No pulsatile mass Musculoskeletal: LE's b/l: FROM to passive/active. Strength 5+/5. No deficits noted. No bony tenderness of extremities. Back: FROM to passive/active. Strength 5+/5. No vertebral point tenderness, stepoffs, or deformities. No other bony tenderness, erythema, swelling, or ecchymosis. SLR negative b/l. + mild tenderness to the T/L-paraspinal mm left side. + spasming left back. No SI jt tenderness. No foot drop Extremities: No cyanosis, clubbing, or edema b/l. Peripheral pulses 2+. Capillary refill less than 2 seconds. NEUROLOGICAL: Normal speech, ataxic gait. Normal sensory, motor exams. Reflexes 2+ b/l. PSYCH: Normal mood, normal affect. SKIN: Warm, Dry, normal turgor, no rashes or lesions noted. - INFECTION CONTROL TRAVEL OUTSIDE OF THE [place] IN LAST 30 DAYS: No Course - Re-evaluation Re-evalutation: 08/30/17 22:46 Patient is an afebrile, well-hydrated, 32-year-old male who presents to the ED with mid and low back pain with muscle spasming. Vitals are acceptable. PE is otherwise unremarkable for any focal neurological deficits. Patient has no other red flag symptoms. He is tolerating p.o. without difficulties. He has no tachycardia, tachypnea, or hypoxia. Patient is able to ambulate. No labs or imaging warranted at this time based on H&P. Decadron, Toradol, and 1 dose of p.o. Valium given today for symptoms. 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 Low suspicion for any meningitis, fracture, expanding/ruptured AAA, cauda equina syndrome, epidural mass lesion/abscess, herniated disc causing severe spinal stenosis, or other systemic infection at this time. Patient is aware that his condition can change from initial presentation and that he needs monitor symptoms closely for any acute changes. I will send him home with a prescription for baclofen and naproxen. Conservative measures otherwise for symptoms. Recheck with your PCM in 3-5 days. Consider consult orthopedic/ physical therapy. Return to the ED with any worsening/concerning symptoms otherwise as reviewed discharge. Patient is in agreement. - Vital Signs Vital signs: Temp Pulse Resp BP Pulse Ox 98.1 F 80 20 167/110 H 99 08/30/17 21:47 08/30/17 21:47 08/30/17 21:47 08/30/17 21:47 08/30/17 21:47 Discharge - Discharge Clinical Impression: Low back pain Qualifiers: Chronicity: acute Back pain laterality: left Sciatica presence: unspecified whether sciatica present Qualified Code(s): M54.5 - Low back pain Thoracic back pain Qualifiers: Chronicity: acute Back pain laterality: left Qualified Code(s): M54.6 - Pain in thoracic spine Condition: Stable Disposition: HOME, SELF-CARE Instructions: Low Back Pain ([facility]), Stretching Exercises for the Back ([facility]) Additional Instructions: Rest, Ice, Compression Tylenol/ibuprofen as needed Light stretches daily Strength exercises as able Moist heat and massage may help F/u with your PCP in 3-5 days for a recheck Consider consult(s) with Orthopedics/physical therapy for ongoing/worsening symptoms Return to the ED with any worsening symptoms and/or development of fever, headache, chest pain, palpitations, syncope, shortness of breath, trouble breathing, abdominal pain, n/v/d, blood in stool/urine, loss of control of bowel /bladder, urinary retention, muscle weakness/paralysis, saddle anesthesia, numbness/tingling, or other worsening symptoms that are concerning to you. Prescriptions: Baclofen [Baclofen 10 mg Tablet] 5 - 10 mg PO BID PRN #10 tablet PRN Reason: Naproxen 500 mg PO BID PRN #30 tablet PRN Reason: Forms: Elevated Blood Pressure Referrals: [facility] ([facility] [Provider Group] - Follow up as needed
[2017-08-30 23:35] VITALS: BP 151/90
== END 2017-08-30 23:33 | disposition home or self-care (01) ==
LOC: ER 21:30
DX: M54.5 Low back pain (principal); M54.6 Pain in thoracic spine; M62.830 Muscle spasm of back; R20.8 Other disturbances of skin sensation; I10 Essential (primary) hypertension
CPT/HCPCS: 99283; 96372; J1885; J1100

== ENCOUNTER 2017-11-13 17:31 | Emergency (ER) | payer SELFPAY ==
[2017-11-13] MEDS ORDERED: DEXAMETHASONE SOD PHOS INJ 10 MG/1 ML VIAL IM ONE (19:58)
[2017-11-13] MEDS ORDERED: KETOROLAC TROMETHAMINE 60 MG/2 ML SDV IM ONE (19:58)
[2017-11-13] MEDS ORDERED: DIAZEPAM 5 MG TABLET PO ONE (19:58)
[2017-11-13] MEDS ORDERED: KETOROLAC TROMETHAMINE INJ/PF 30 MG/1 ML SDV ONE ×2 (20:11→20:15)
[2017-11-13] MEDS ORDERED: DIAZEPAM 5 MG TABLET ONE (20:12)
[2017-11-13] MEDS ORDERED: DEXAMETHASONE SOD PHOS INJ 10 MG/1 ML VIAL ONE (20:13)
[2017-11-13] MEDS ORDERED: KETOROLAC TROMETHAMINE 60 MG/2 ML SDV ONE (20:20)
--- NOTE | 2017-11-13 20:52 | ER Document Report ---
ED General - General Chief Complaint: Low Back Pain Stated Complaint: BACK PAIN Time Seen by Provider: 11/13/17 19:31 Mode of Arrival: Ambulatory Information source: Patient Notes: Patient is a 32-year-old male who presents with chief complaint of back pain. Patient reports history of problems with his low back however this episode has been going on the last 2 days. Patient reports pain is located in the left lumbar spine and radiates down the left leg. Patient denies any loss of bowel or bladder, patient denies any difficulty urinating. TRAVEL OUTSIDE OF THE [place] IN LAST 30 DAYS: No - Related Data Allergies/Adverse Reactions: No Known Allergies Allergy (Verified 11/13/17 17:37) Past Medical History - General Information source: Patient - Social History Smoking Status: Never Smoker Chew tobacco use (# tins/day): No Frequency of alcohol use: None Drug Abuse: None Family History: Reviewed & Not Pertinent Patient has suicidal ideation: No Patient has homicidal ideation: No - Past Medical History Cardiac Medical History: Reports: Hx Hypertension Renal/ Medical History: Denies: Hx Peritoneal Dialysis - Immunizations Hx Diphtheria, Pertussis, Tetanus Vaccination: Yes Review of Systems - Review of Systems Constitutional: No symptoms reported EENT: No symptoms reported Cardiovascular: No symptoms reported Respiratory: No symptoms reported Gastrointestinal: No symptoms reported Genitourinary: No symptoms reported Male Genitourinary: No symptoms reported Musculoskeletal: See HPI Skin: No symptoms reported Hematologic/Lymphatic: No symptoms reported Neurological/Psychological: No symptoms reported Physical Exam - Vital signs Vitals: Temp Pulse Resp BP Pulse Ox 97.6 F 106 H 18 141/84 H 98 11/13/17 17:41 11/13/17 17:41 11/13/17 17:41 11/13/17 17:41 11/13/17 17:41 - Notes Notes: PHYSICAL EXAMINATION: GENERAL: Well-appearing, well-nourished and in no acute distress. HEAD: Atraumatic, normocephalic. EYES: Pupils equal round and reactive to light, extraocular movements intact, sclera anicteric, conjunctiva are normal. ENT: Nares patent, oropharynx clear without exudates. Moist mucous membranes. NECK: Normal range of motion, supple without lymphadenopathy LUNGS: Breath sounds clear to auscultation bilaterally and equal. No wheezes rales or rhonchi. HEART: Regular rate and rhythm without murmurs Musculoskeletal: Normal range of motion, no pitting or edema. No cyanosis. Tenderness to palpation to left paraspinous muscle. NEUROLOGICAL: Cranial nerves grossly intact. Normal speech, normal gait. Normal sensory, motor exams PSYCH: Normal mood, normal affect. SKIN: Warm, Dry, normal turgor, no rashes or lesions noted. Course - Re-evaluation Re-evalutation: Patient with recurrence of chronic low back pain. Patient reports last time he was seen it was recommended that he get an MRI. Patient states that he has not gotten one as he does not have medical insurance and cannot afford it. Patient reports this episode started approximately 2 days ago, denies any new injury. Patient is able to ambulate, patient reports pain to left paraspinous muscle with radiation to the left buttock. Will medicate patient with Toradol, Decadron and p.o. Valium and reevaluate. Patient reports significant reduction in pain after medications were given. Patient will be discharged home with plan to follow-up with [facility] where he may be able to get an order for an MRI if that physician deems it necessary. Patient given ED return precautions to include loss of bowel control or being unable to urinate. - Vital Signs Vital signs: Temp Pulse Resp BP Pulse Ox 97.6 F 106 H 18 141/84 H 98 11/13/17 17:41 11/13/17 17:41 11/13/17 17:41 11/13/17 17:41 11/13/17 17:41 Discharge - Discharge Clinical Impression: Back pain Qualifiers: Back pain location: low back pain Chronicity: acute Back pain laterality: left Sciatica presence: with sciatica Sciatica laterality: sciatica of left side Qualified Code(s): M54.42 - Lumbago with sciatica, left side Condition: Stable Disposition: HOME, SELF-CARE Additional Instructions: LOW BACK PAIN: Three out of every four people will have an episode of disabling back pain during their lifetime. Most commonly the pain is due to straining of the muscles and ligaments in the low back. Usual treatment includes: (1) Rest on a firm surface. Avoid lying on your stomach. (2) Ice pack the painful area. After a few days, gentle heat may be used intermittently to relax the area, or ice packs can be continued. (3) Medication may be needed -- muscle relaxers and antiinflammatory medicines are commonly used. (4) As the back improves, exercises are prescribed to strengthen the back and abdominal muscles. Your doctor will advise you on the proper care for your back at each stage in your recovery. You may be better in a few days -- or healing may take several weeks. If new symptoms of a "herniated disc" (radiation of pain, numbness, or tingling down the back of the leg or weakness in the leg) occur, you should be re-examined. Further testing may be necessary. PAIN MEDICATION INJECTION: You have received an injection of a pain medication. You should experience significant pain relief within 45 minutes. If this injection was a narcotic -- it will impair your judgement, slow your reaction time and make you sleepy (as well as relieve your pain). Narcotics also can cause nausea. You should not drive, work with machinery, or perform any task requiring mental alertness until all effects of the medication are gone -- six to eight hours. Do not take any alcohol, or sedatives, and do not take any other medication without checking with your physician. MUSCLE RELAXERS: Muscle relaxing medications are usually prescribed for acute muscle spasm or injury to the neck and back. They are often combined with antiinflammatory pain medication for increased relief. You may stop the muscle relaxer when the pain and stiffness have improved. Start the medication again if spasms recur. Muscle relaxers may cause drowsiness, especially with the first dose. Do not operate machinery or drive while under the effects of the medication. Most muscle relaxers last up to 24 hours. Do not combine the medication with alcohol. ICE PACKS: Apply ice packs frequently against the painful area. Many different schedules are recommended, such as "20 minutes on, 20 minutes off" or "one hour ice, two hours rest." If you need to work, you may need to go longer between ice treatments. You should plan to have the area ice packed AT LEAST one fourth of the time. The ice should be applied over the wrap, tape, or splint, or over a layer of cloth -- not directly against the skin. Some ice bags have a built-in cloth and can be put directly on the skin. WARM PACKS: After approximately two days, apply gentle heat (such as a heating pad or hot water bottle) for about 20 to 30 minutes about every two hours -- at least four times daily. Warmth and elevation will help you make a more rapid recovery , and will ease the pain considerably. Do not use HOT heat, and never apply heat for longer than 30 minutes. The continuous heat can invisibly damage skin and muscles -- even when no burn is seen on the surface. Damaged muscles can make you MORE sore. FOLLOW-UP CARE: If you have been referred to a physician for follow-up care, call the physician s office for an appointment as you were instructed or within the next two days. If you experience worsening or a significant change in your symptoms, notify the physician immediately or return to the Emergency Department at any time for re-evaluation. Draining anymore please follow-up with the provider outlined below. You may very well need to have an MRI done to evaluate your lumbar disks. Prescriptions: Cyclobenzaprine HCl [Flexeril 10 mg Tablet] 10 mg PO TIDP PRN 30 Days #15 tab PRN Reason: Muscle Spasms Lidocaine [Lidoderm 5% (700 mg) Transdermal Patch] 1 patch TP DAILY #30 adh..patch
[2017-11-13 21:06] VITALS: BP 157/96
== END 2017-11-13 21:08 | disposition home or self-care (01) ==
LOC: ER 17:31
DX: M54.42 Lumbago with sciatica, left side (principal); I10 Essential (primary) hypertension
CPT/HCPCS: 99283; 96372; J1885; J1100

== ENCOUNTER 2019-01-09 13:37 | Emergency (ER) | payer SELFPAY ==
[2019-01-09] MEDS ORDERED: FAMOTIDINE INJ/PF 20 MG/2 ML SDV IV ONE ×2 (14:02→16:13)
[2019-01-09] MEDS ORDERED: NORMAL SALINE 1000 ML 1,000 ML IV ONE (14:02)
--- NOTE | 2019-01-09 14:04 | ER Document Report ---
ED Medical Screen (RME) - General Chief Complaint: Abdominal Pain Stated Complaint: LEFT/RIGHT SIDE FLANK PAIN Time Seen by Provider: 01/09/19 13:57 Mode of Arrival: Ambulatory Information source: Patient Notes: Patient is an otherwise healthy 33-year-old male presenting with chief complaint of generalized abdominal pain, bilateral flank pain, nausea and diarrhea that began 3 days ago. Patient reports diarrhea has gone away but abdominal pain and flank pain persists. Patient denies any dysuria. He reports occasional fever and chills. Exam: Abdomen soft, nondistended, mild tenderness with palpation. I have greeted and performed a rapid initial assessment of this patient. A comprehensive ED assessment and evaluation of the patient, analysis of test results and completion of the medical decision making process will be conducted by additional ED providers. I have specifically instructed the patient or family members with the patient to immediately return to any nursing staff s hould anything change in the patient's condition or with their chief complaint. This medical record was dictated with voice recognizing software. There may be grammatical, syntax errors that are unintended. TRAVEL OUTSIDE OF THE [place] IN LAST 30 DAYS: No - Related Data Allergies/Adverse Reactions: No Known Allergies Allergy (Verified 11/13/17 17:37) Past Medical History - Past Medical History Cardiac Medical History: Reports: Hx Hypertension Renal/ Medical History: Denies: Hx Peritoneal Dialysis - Immunizations Hx Diphtheria, Pertussis, Tetanus Vaccination: Yes History of Influenza Vaccine for 01/2017 - 06/2017 Season: Unknown Physical Exam - Vital signs Vitals: Temp Pulse Resp BP Pulse Ox 98.4 F 82 16 147/98 H 99 01/09/19 13:44 01/09/19 13:44 01/09/19 13:44 01/09/19 13:44 01/09/19 13:44 Course - Vital Signs Vital signs: Temp Pulse Resp BP Pulse Ox 98.4 F 82 16 147/98 H 99 01/09/19 13:44 01/09/19 13:44 01/09/19 13:44 01/09/19 13:44 01/09/19 13:44
[2019-01-09 14:49] LABS: ABSOLUTE EOSINOPHILS # (AUTO) 0.2 10^3/uL (0.0-0.6); ABSOLUTE LYMPHOCYTES (AUTO) 2.1 10^3/uL (0.5-4.7); ABSOLUTE MONOCYTES (AUTO) 0.6 10^3/uL (0.1-1.4); ABSOLUTE NEUT (AUTO) 5.5 10^3/uL (1.7-8.2); BASOPHILS % (AUTO) 0.5 % (0-2); EOSINOPHILS % (AUTO) 2.4 % (0-6); HEMATOCRIT 45.9 % (37.9-51.0); HEMOGLOBIN 16.2 g/dL (13.5-17.0); LYMPHOCYTES % (AUTO) 24.8 % (13-45); MEAN CORPUSCULAR HEMOGLOBIN 30.8 pg (27.0-33.4); MEAN CORPUSCULAR HGB CONC 35.3 g/dL (32.0-36.0); MEAN CORPUSCULAR VOLUME 87 fl (80-97); MONOCYTES % (AUTO) 7.2 % (3-13); PLATELET COUNT 262 10^3/uL (150-450); RED BLOOD COUNT 5.27 10^6/uL (4.35-5.55); RED CELL DISTRIBUTION WIDTH 12.9 % (11.5-14.0); SEGMENTED NEUTROPHILS % (AUTO) 65.1 % (42-78); TOTAL CELLS COUNTED % (AUTO) 100 %; WHITE BLOOD COUNT 8.4 10^3/uL (4.0-10.5)
[2019-01-09 15:01] LABS: ALBUMIN 4.7 g/dL (3.5-5.0); ALKALINE PHOSPHATASE 62 U/L (38-126); ANION GAP 11 (5-19); ASPARTATE AMINO TRANSFERASE 74 U/L (17-59); BILIRUBIN,DIRECT 0.2 mg/dL (0.0-0.4); BILIRUBIN,TOTAL 0.6 mg/dL (0.2-1.3); BLOOD UREA NITROGEN 12 mg/dL (7-20); CALCIUM 9.4 mg/dL (8.4-10.2); CARBON DIOXIDE 28 mmol/L (22-30); CHLORIDE 99 mmol/L (98-107); GLUCOSE 97 mg/dL (75-110); POTASSIUM 4.2 mmol/L (3.6-5.0); TOTAL PROTEIN 7.2 g/dL (6.3-8.2)
[2019-01-09 15:11] LABS: APPEARANCE,URINE CLEAR; BILIRUBIN,URINE NEGATIVE (NEGATIVE); COLOR,URINE COLORLESS; GLUCOSE, URINE NEGATIVE (NEGATIVE); KETONES,URINE NEGATIVE (NEGATIVE); LEUKOCYTE ESTERASE,URINE NEGATIVE (NEGATIVE); NITRITE,URINE NEGATIVE (NEGATIVE); PROTEIN,URINE NEGATIVE (NEGATIVE); URINE SPECIFIC GRAVITY 1.004; UROBILINOGEN,URINE NEGATIVE mg/dL (<2.0)
[2019-01-09] MEDS ORDERED: KETOROLAC TROMETHAMINE INJ/PF 30 MG/1 ML SDV IV ONE (17:29)
--- NOTE | 2019-01-09 18:25 | RADIOLOGY REPORT (SQ) ---
EXAM DESCRIPTION: CT ABD/PELVIS WITH IV ONLY COMPLETED DATE/TIME: 01/09/2019 6:12 pm REASON FOR STUDY: abd pain bilat upper quad COMPARISON: 10/30/2014 TECHNIQUE: CT scan of the abdomen and pelvis performed using helical scanning technique with dynamic intravenous contrast injection. No oral contrast. Images reviewed with lung, soft tissue, and bone windows. Reconstructed coronal and sagittal MPR images reviewed. Delayed images for evaluation of the urinary system also acquired. All images stored on PACS. All CT scanners at this facility use dose modulation, iterative reconstruction, and/or weight based d osing when appropriate to reduce radiation dose to as low as reasonably achievable (ALARA). [facility]: Dose Right [facility]: CareDose [facility]: Dose Right [facility]: Teradose 4D [facility]: FaceRig CONTRAST TYPE AND DOSE: contrast/concentration: Isovue 350.00 mg/ml; Total Contrast Delivered: 100.0 ml; Total Saline Delivered: 72.0 ml RENAL FUNCTION: BUN 12 creatinine 1.06 RADIATION DOSE: CT Rad equipment meets quality standard of care and radiation dose reduction techniq ues were employed. CTDIvol: NaN - NaN mGy. DLP: 0 mGy-cm.. LIMITATIONS: None. FINDINGS: LOWER CHEST: No significant findings. No nodules or infiltrates. LIVER: The liver is diffusely hypoattenuating. No mass. SPLEEN: Normal size. No focal lesions. PANCREAS: No masses. No significant calcifications. No adjacent inflammation or peripancreatic fluid collections. Pancreatic duct not dilated. GALLBLADDER: No identified stones by CT criteria. No inflammatory changes to suggest cholecystitis. ADRENAL GLANDS: No significant masses or asymmetry. RIGHT KIDNEY AND URETER: No solid masses. No significant calcifications. No hydronephrosis or hyd roureter. LEFT KIDNEY AND URETER: No solid masses. No significant calcifications. No hydronephrosis or hydr oureter. AORTA AND VESSELS: No aneurysm. No dissection. Renal arteries, SMA, celiac without stenosis. RETROPERITONEUM: No retroperitoneal adenopathy, hemorrhage or masses. BOWEL AND PERITONEAL CAVITY: No masses or inflammatory changes. No free fluid or peritoneal masses. APPENDIX: Normal. PELVIS: The bladder is not well filled and is poorly evaluated. No abnormal pelvic mass or fluid col lection is seen. ABDOMINAL WALL: Uncomplicated right inguinal hernia. BONES: No significant or acute findings. OTHER: No other significant finding. IMPRESSION: Hepatic steatosis. Uncomplicated right inguinal hernia. TECHNICAL DOCUMENTATION: JOB ID: [id number] Quality ID # 436: Final reports with documentation of one or more dose reduction techniques (e.g., Au tomated exposure control, adjustment of the mA and/or kV according to patient size, use of iterative reconstruction technique) 2010 [employer]- All Rights Reserved Reading location - IP/workstation name: [email or web address]
--- NOTE | 2019-01-09 19:36 | ER Document Report ---
ED General - General Chief Complaint: Abdominal Pain Stated Complaint: LEFT/RIGHT SIDE FLANK PAIN Time Seen by Provider: 01/09/19 13:57 Mode of Arrival: Ambulatory Information source: Patient TRAVEL OUTSIDE OF THE [place] IN LAST 30 DAYS: No - HPI Notes: Patient complains of approximately 4 days of abdominal pain. He states it is bilateral upper quadrant and spreads across the front of his abdomen. No significant back pain. He denies any chest pain. No shortness of breath. No cough cold or congestion. He has had no vomiting or nausea. He states his appetite is been decreased a little bit. He states he had diarrhea but this stopped 2 days ago. He states he has had no further problems with stool since then. No problems with urination. No similar history of previous discomfort. No abdominal surgeries. He denies any type of new workout regimens or lifting any thing unusual. No rashes. The pain is made worse by walking and better with rest. It is moderate in intensity. It is a cramping sensation. - Related Data Allergies/Adverse Reactions: No Known Allergies Allergy (Verified 11/13/17 17:37) Past Medical History - General Information source: Patient - Social History Smoking Status: Never Smoker Chew tobacco use (# tins/day): No Frequency of alcohol use: None Drug Abuse: None Family History: Reviewed & Not Pertinent Patient has suicidal ideation: No Patient has homicidal ideation: No - Past Medical History Cardiac Medical History: Reports: Hx Hypertension Renal/ Medical History: Denies: Hx Peritoneal Dialysis - Immunizations Hx Diphtheria, Pertussis, Tetanus Vaccination: Yes Review of Systems - Review of Systems Constitutional: denies: Chills, Fever EENT: denies: Nose pain, Nose congestion Cardiovascular: denies: Chest pain, Dyspnea Respiratory: denies: Cough, Short of breath -: Yes All other systems reviewed and negative Physical Exam - Vital signs Vitals: Temp Pulse Resp BP Pulse Ox 98.4 F 82 16 147/98 H 99 01/09/19 13:44 01/09/19 13:44 01/09/19 13:44 01/09/19 13:44 01/09/19 13:44 Interpretation: Normal - General General appearance: Appears well, Alert - HEENT Head: Normocephalic, Atraumatic Eyes: Normal Pupils: PERRL - Respiratory Respiratory status: No respiratory distress Chest status: Nontender Breath sounds: Normal Chest palpation: Normal - Cardiovascular Rhythm: Regular Heart sounds: Normal auscultation Murmur: No - Abdominal Inspection: Normal Distension: No distension Bowel sounds: Normal Tenderness: Tender - Mild bilateral upper quadrant tenderness to palpation. No rebound or guarding. Organomegaly: No organomegaly - Back Back: Normal, Nontender - Extremities General upper extremity: Normal inspection, Nontender, Normal color, Normal ROM, Normal temperature General lower extremity: Normal inspection, Nontender, Normal color, Normal ROM, Normal temperature, Normal weight bearing. No: Jamil's sign - Neurological Neuro grossly intact: Yes Cognition: Normal Orientation: AAOx4 Crowheart Coma Scale Eye Opening: Spontaneous Chirag Coma Scale Verbal: Oriented Crowheart Coma Scale Motor: Obeys Commands Crowheart Coma Scale Total: 15 Speech: Normal Motor strength normal: LUE, RUE, LLE, RLE Sensory: Normal - Psychological Associated symptoms: Normal affect, Normal mood - Skin Skin Temperature: Warm Skin Moisture: Dry Skin Color: Normal Course - Re-evaluation Re-evalutation: 01/09/19 19:33 Patient's laboratories are unremarkable. His CT scan is also unremarkable except for some hepatic steatosis. This would not account for his pain. On repeat exam patient still has the tenderness in the upper quadrants and states he is still getting pain when he walks. However I cannot find anything that would account for the patient's bilateral upper quadrant pain that is worse with walking. Inspection of the series unremarkable. This does not seem to be cardiac or pulmonary in origin. There is no evidence of pancreatic or gallbladder disease. He was informed of his hepatic steatosis and the need to follow up for that. However I do not believe this has anything to do with the patient's presentation. He does have a history of an inguinal hernia but patient has no lower abdominal discomfort. The hernia at this time is not tender or protruding. Patient has no evidence of kidney stone. - Vital Signs Vital signs: Temp Pulse Resp BP Pulse Ox 98.4 F 82 16 147/98 H 99 01/09/19 13:44 01/09/19 13:44 01/09/19 13:44 01/09/19 13:44 01/09/19 13:44 - Laboratory Result Diagrams: 01/09/19 14:23 01/09/19 14:23 Laboratory results interpreted by me: 01/09/19 14:23 AST 74 H - Diagnostic Test Radiology reviewed: Image reviewed, Reports reviewed Discharge - Discharge Clinical Impression: Left upper quadrant abdominal pain of unknown etiology, Right upper quadrant abdominal pain Condition: Stable Disposition: HOME, SELF-CARE Instructions: Abdominal Pain ([facility]) Additional Instructions: Please call your primary care doctor first thing in the morning to arrange follow-up. If you do not have a primary care doctor please call Dr. Fernandez. Prescriptions: Tramadol HCl [Ultram] 50 mg PO Q6 PRN 3 Days #12 tablet PRN Reason: Referrals: EDWAR FERNANDEZ MD [ACTIVE STAFF] - Follow up tomorrow
[2019-01-09 20:05] VITALS: BP 139/100
== END 2019-01-09 20:03 | disposition home or self-care (01) ==
LOC: ER 13:37
DX: R10.10 Upper abdominal pain, unspecified (principal); I10 Essential (primary) hypertension
CPT/HCPCS: 36415; 83690; 85025; 80053; 81001; 74177; J1885; J7030; 96361; 96374; 99284

== ENCOUNTER 2019-07-04 20:57 | Emergency (ER) | payer SELFPAY ==
--- NOTE | 2019-07-04 23:15 | ER Document Report ---
ED General - General Chief Complaint: Back Injury Stated Complaint: BACK INJURY Time Seen by Provider: 07/04/19 23:14 Mode of Arrival: Ambulatory Information source: Patient Notes: Patient is a 34-year-old male presenting to the emergency department chief complaint of accidental fall yesterday of approximately 6 feet. Patient states he was on a ladder and the ladder tipped over causing him to fall and hit the ground outside. Patient states that since then he has had pain to the right side of his head neck shoulder and chest region. Patient states he is also had some intermittent numbness to the right upper extremity and right side of his face. 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 Patient denies loss of consciousness. Patient denies nausea vomiting diarrhea fevers chills cough or cold symptoms. TRAVEL OUTSIDE OF THE [place] IN LAST 30 DAYS: No - HPI Onset: Yesterday Onset/Duration: Sudden Quality of pain: Throbbing Severity: Moderate Pain Level: 3 Associated symptoms: denies: Diarrhea, Hurts to breath, Nausea, Vomiting, Shortness of breath Exacerbated by: Movement Relieved by: Denies Similar symptoms previously: No Recently seen / treated by doctor: No - Related Data Allergies/Adverse Reactions: No Known Allergies Allergy (Verified 11/13/17 17:37) Past Medical History - General Information source: Patient - Social History Smoking Status: Never Smoker Frequency of alcohol use: None Drug Abuse: None Lives with: Family Family History: Reviewed & Not Pertinent Patient has suicidal ideation: No Patient has homicidal ideation: No - Past Medical History Cardiac Medical History: Reports: Hx Hypertension Renal/ Medical History: Denies: Hx Peritoneal Dialysis - Immunizations Hx Diphtheria, Pertussis, Tetanus Vaccination: Yes Review of Systems - Review of Systems Notes: REVIEW OF SYSTEMS: CONSTITUTIONAL : Denies fever, chills, or sweats. Denies recent illness. EENT: Denies eye, ear, throat, or mouth pain or symptoms. Denies nasal or sinus congestion. CARDIOVASCULAR: Denies chest pain. RESPIRATORY: Denies cough, cold, or chest congestion. Denies shortness of breath, difficulty breathing, or wheezing. GASTROINTESTINAL: Denies abdominal pain. Denies nausea, vomiting, or diarrhea. Denies constipation. GENITOURINARY: Denies difficulty urinating, painful urination, burning, frequency, or blood in urine. MUSCULOSKELETAL: Per HPI SKIN: Denies rash or skin lesions. HEMATOLOGIC : Denies easy bruising or bleeding. NEUROLOGICAL: Per HPI PSYCHIATRIC: Denies suicidal or homicidal ideations 10 Systems are negative unless otherwise specified above Physical Exam - Vital signs Vitals: Temp Pulse Resp BP Pulse Ox 98.7 F 81 16 160/97 H 99 07/04/19 21:07 07/04/19 21:07 07/04/19 21:07 07/04/19 21:07 07/04/19 21:07 - Notes Notes: PHYSICAL EXAMINATION: GENERAL: Well-appearing, well-nourished and in no acute distress. HEAD: Atraumatic, normocephalic. EYES: Pupils equal round and reactive to light, extraocular movements intact, sclera anicteric, conjunctiva are normal. ENT: nares patent, oropharynx clear without exudates. Moist mucous membranes. NECK: Normal range of motion, supple without lymphadenopathy, no appreciable JVD LUNGS: Lungs clear to auscultation bilaterally and equal. No wheezes rales or rhonchi. HEART: Regular rate and rhythm without murmurs ABDOMEN: Soft, nontender, normal bowel sounds. No guarding, no rebound. No masses appreciated. EXTREMITIES: Active full range of motion, no pitting or edema. No cyanosis. 2+ pulses x4 Back: Tenderness in the right para spinous muscles in the cervical and upper thoracic region no obvious step-offs or deformities were appreciated. NEUROLOGICAL: At time of evaluation the patient is alert and oriented x3, Glascow coma scale of 15, cranial nerves II through XII are grossly intact, sensations intact, motor is intact, there are no signs of nystagmus, there is no pronator drift, there is no facial asymmetry, tongue protrusion is midline, reflexes are equal and bilateral, patient ambulates without ataxia, patient answers all questions appropriately follows commands appropriately. Patient does report numbness to the right upper extremity in the region of ulnar di stribution SKIN: Warm, Dry, and intact. Normal turgor, no rashes or lesions noted. Course - Re-evaluation Re-evalutation: 07/05/19 00:34 I reviewed the radiologic results with the patient there is no significant findings. 07/05/19 00:40 Patient and I have spoken patient is agreeable with conservative management of rest ice and increase of fluids Tylenol and Motrin [id number] as needed for aches and pains. Patient is stable at time of discharge - Vital Signs Vital signs: Temp Pulse Resp BP Pulse Ox 98.7 F 81 16 160/97 H 99 07/04/19 21:07 07/04/19 21:07 07/04/19 21:07 07/04/19 21:07 07/04/19 21:07 - Diagnostic Test Radiology reviewed: Reports reviewed Discharge - Discharge Clinical Impression: Multiple contusions Accidental fall Qualifiers: Encounter type: initial encounter Qualified Code(s): W19.XXXA - Unspecified fall, initial encounter Condition: Stable Disposition: HOME, SELF-CARE Instructions: Ice Packs ([facility]), Warm Packs ([facility]), Muscle Strain ([facility])
--- NOTE | 2019-07-05 00:15 | RADIOLOGY REPORT (SQ) ---
EXAM DESCRIPTION: CT CERVICAL SPINE WITHOUT IV CONTRAST COMPLETED DATE/TME: 07/04/2019 23:40 CLINICAL HISTORY: 34 years, Male, fall COMPARISON: None. TECHNIQUE: Noncontrast CT of the cervical spine was acquired. Coronal and sagittal reformations were created. Images stored on PACS. All CT scanners at this facility use dose modulation, iterative reconstruction, and/or weight based dosing when appropriate to reduce radiation dose to as low as reasonably achievable (ALARA). [facility]: Dose Right [facility]: CareDose [facility]: Dose Right [facility]: Teradose 4D [facility]: Smart [place] LIMITATIONS: None. FINDINGS: Limited evaluation of the posterior fossa structures reveals no suspicious abnormality. Occipital condyles are normal. Lateral masses of C1 and C2 align properly. Base and tip of the dens are intact. The C2 and C3 vertebral bodies are fused. Otherwise, cervical vertebral body heights and alignments are maintained. No acute fracture or malalignment is appreciated. Intervertebral disc spaces are otherwise well-maintained. 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 Visualized lung apices are clear. Paravertebral soft tissues show no suspicious abnormality. IMPRESSION: No acute fracture or malalignment. TECHNICAL DOCUMENTATION: Quality ID # 436: Final reports with documentation of one or more dose reduction techniques (e.g., Automated exposure control, adjustment of the mA and/or kV according to patient size, use of iterative reconstruction technique) copyright 2011 [employer]- All Rights Reserved
--- NOTE | 2019-07-05 00:22 | RADIOLOGY REPORT (SQ) ---
EXAM DESCRIPTION: XR THORACIC SPINE 2 VIEWS COMPLETED DATE/TME: 07/04/2019 23:40 CLINICAL HISTORY: 34 years Male, fall COMPARISON: None. Limitation: Motion. Findings: Normal alignment and curvature. Vertebral heights are maintained. Extraspinal structures are grossly intact. IMPRESSION: No acute findings of XR THORACIC SPINE 2 VIEWS. .
--- NOTE | 2019-07-05 00:22 | RADIOLOGY REPORT (SQ) ---
EXAM DESCRIPTION: Noncontrast CT head CLINICAL HISTORY: 34 years Male fall TECHNIQUE: Noncontrast CT head. All CT scans at this facility use dose modulation, iterative reconstruction, and/or weight based dosing when appropriate to reduce radiation dose to as low as reasonably achievable. COMPARISON: None. FINDINGS: Rodriguez matter, white matter, ventricles, and cisterns are within normal limits. No acute hemorrhage or mass effect. Visualized portions of paranasal sinuses and mastoids are clear. Visualized portions of the calvarium are within normal limits. IMPRESSION: 1. No acute intracranial findings.
--- NOTE | 2019-07-05 00:27 | RADIOLOGY REPORT (SQ) ---
EXAM: XR Right Shoulder Complete, 3 Views EXAM DATE/TIME: 07/05/2019 at 12:05 AM CLINICAL HISTORY: The patient is 34 years old and is Male; fall from ladder, pain TECHNIQUE: 3 views of the right shoulder. COMPARISON: No relevant prior studies available. FINDINGS: BONES/JOINTS: No acute fracture. No dislocation. SOFT TISSUES: No significant soft tissue swelling visualized. IMPRESSION: No acute findings.
[2019-07-05 00:49] VITALS: BP 154/95
== END 2019-07-05 00:49 | disposition home or self-care (01) ==
LOC: ER 20:57
DX: T14.8XXA Other injury of unspecified body region, initial encounter (principal); R51 Headache; M54.2 Cervicalgia; M25.511 Pain in right shoulder; R07.9 Chest pain, unspecified; R20.0 Anesthesia of skin; W11.XXXA Fall on and from ladder, initial encounter; I10 Essential (primary) hypertension
CPT/HCPCS: 70450; 72070; 72125; 99283